=== PATIENT | male | born 1975 | race Caucasian/White ===

== ENCOUNTER 2018-03-14 12:03 | Outpatient (CLI) | payer OTHER ==
--- NOTE | 2018-03-15 08:55 | MRI Report ---
Reason: LESION OF ULNAR NERVE Procedure Date: 03/14/2018 Accession Number: [id number] / [id number] Procedure: MRI - Elbow LT W/O CPT Code: FULL RESULT: EXAM: LEFT ELBOW MRI WITHOUT CONTRAST EXAM DATE: 03/14/2018 01:08 PM. CLINICAL HISTORY: Lesion of ulnar nerve. COMPARISON: None. TECHNIQUE: Multiplanar, multisequence T1-weighted and fluid-sensitive sequences of the elbow without contrast. Other: None. FINDINGS: There is loss of fat saturation along the lateral half of the image. Bones: Marrow signal intensity cannot be accurately assessed due to the lack of fat saturation in the lateral half of the image. Articular Cartilage: Unremarkable. Ligaments: The ulnar collateral, lateral ulnar collateral, radial collateral, and annular ligaments are intact. Tendons: The common flexor and extensor tendons are unremarkable. The distal biceps, brachialis, and triceps tendons are unremarkable. Musculature: No edema or fatty atrophy. Other: There is subcutaneous low T1, high T2 signal roll changer the medial aspect of the medial epicondyle, suggesting prior surgery. The ulnar nerve appears unremarkable. No effusion. The subcutaneous tissues are unremarkable. IMPRESSION: 1. Findings suggestive of prior surgery in the region of the ulnar nerve. No acute pathology identified. [facility] MUSCULOSKELETAL RADIOLOGY SECTION
== END 2018-03-14 12:04 | disposition home or self-care (01) ==
LOC: DI 12:03
PROVIDERS: ATTEND Orthopaedic Surgery
DX: G56.20 Lesion of ulnar nerve, unspecified upper limb (principal)